=== PATIENT | female | born 1985 | race Caucasian/White ===

== ENCOUNTER 2017-12-24 09:41 | Emergency (ER) | payer OTHER ==
[2017-12-24 09:47] VITALS: BP 119/78; TEMP 99.4; BMI 23.4
--- NOTE | 2017-12-24 10:23 | ED.PDOC ---
General ED Provider: Dr. HAILE MONTEMAYOR Chief Complaint: Back Pain Stated Complaint: Low back pain Time Seen by Physician: 10:15 Mode of Arrival: Walk-In Information Source: Patient Exam Limitations: No limitations Nursing and Triage Documentation Reviewed and Agree: Yes Does patient meet sepsis criteria?: No System Inflammatory Response Syndrome: Not Applicable Sepsis Protocol: For patient's 13 years and over: Temp is 96.8 and below OR 101 and greater Pulse >90 BPM Resp >20/minute Acutely Altered Mental Status Are patient's symptoms suggestive of a new infection, such as: -Pneumonia -Skin, Soft Tissue -Endocarditis -UTI -Bone, Joint Infection -Implantable Device -Acute Abdominal Infection -Wound Infection -Meningitis -Blood Stream Catheter Infection -Unknown Musculoskeletal Complaint Exam - Back Pain Complaint/Exam Mechanism of Injury: Reports: No known trauma Onset/Duration: 1 week Symptoms Are: Still present Timing: Constant Initial Severity: Moderate Current Severity: Moderate Location: Reports: Discrete (midline - point tenderness) Character: Reports: Aching Aggravating: Reports: Movements, Lifting, Bending Alleviating: Reports: None Associated Signs and Symptoms: Reports: Pain with weight bearing. Denies: Swelling, Redness, Bruising, Fever, Weakness, Numbness, Tingling, Abdominal pain , Flank pain, Bladder incontinence, Bowel incontinence, Weight loss Related History: Reports: Similar episode (Off and on low back pain; no particular event setting this off this time) Paraspinal Muscle Tenderness: No Paraspinal Muscle Spasm: No Review of Systems - Review Of Systems Constitutional: Reports: No symptoms Eyes: Reports: No symptoms Ears, Nose, Mouth, Throat: Reports: No symptoms Respiratory: Reports: No symptoms Cardiac: Reports: No symptoms Musculoskeletal: Reports: Back pain. Denies: Joint pain, Joint swelling, Muscle pain, Muscle stiffness, Neck pain Skin: Reports: No symptoms All Other Systems: Reviewed and Negative Past Medical History - Past Medical History Previously Healthy: Yes Endocrine: Reports: None Cardiovascular: Reports: None Respiratory: Reports: None, Other Hematological: Reports: None Gastrointestinal: Reports: None Genitourinary: Reports: None Neuro/Psych: Reports: None Musculoskeletal: Reports: None Cancer: Reports: None Last Menstrual Period: 1 month ago - Surgical History General Surgical History: Reports: Hysterectomy - Family History Family History: Reports: Unknown - Social History Smoking Status: Current every day smoker, Heavy tobacco smoker Hx Substance Use: No Alcohol Screening: Occasionally Physical Exam - Physical Exam Appearance: Well-appearing Pain Distress: Mild (When seated in position of comfort on exam bed) Neck: Supple Respiratory: Airway patent, Breath sounds clear, Breath sounds equal Cardiovascular: RRR, Pulses normal Musculoskeletal: Normal strength, ROM intact, No edema Skin: Warm, Dry, Normal color Neurological: Sensation intact, Motor intact, Alert, Oriented Psychiatric: Affect appropriate, Mood appropriate Interpretation - Radiology Interpretation Radiology Interpretation By: Radiologist Radiology Results: No acute changes Exam Interpreted: Other (LS Series - no acute changes) Re-Evaluation - Re-Evaluation Time of Re-Evaluation: 11:15 Status: Unchanged Vital Signs Stable: Yes Pain Level: Mild when seated in position of comfort Appearance: NAD Critical Care Note - Critical Care Note Total Time (mins): 10 Course - Course Orders, Labs, Meds: Lab Review 12/24/17 09:55 Urine Color Yellow Urine Clarity Clear Urine pH 7.0 Ur Specific [place] 1.025 Urine Protein 1+ Urine Glucose (UA) Negative Urine Ketones Trace Urine Blood Negative Urine Nitrite Negative Urine Bilirubin Negative Urine Urobilinogen 0.2 Ur Leukocyte Esterase 1+ Urine Microscopic RBC 0-2 Urine Microscopic WBC 2-5 Ur Squamous Epith Cells 2-5 Amorphous Sediment 1+ Urine Bacteria 2+ Orders Category Date Time Status URINALYSIS C & S IF INDICATED Stat LAB 12/24/17 09:55 Completed URINE CULTURE Routine LAB 12/24/17 09:55 Received LUMBAR SPINE, MIN 4 VIEWS Stat RADS 12/24/17 10:26 Completed Vital Signs: Temp Pulse Resp BP Pulse Ox 12/24/17 09:41 99.4 F 91 H 16 119/78 96 Departure - Departure Time of Disposition: 11:21 Disposition: HOME SELF-CARE Discharge Problem: Urinary tract infection Low back pain Qualifiers: Chronicity: acute Back pain laterality: midline Sciatica presence: without sciatica Qualified Code(s): M54.5 - Low back pain Instructions: Low Back Strain (ED), Urinary Tract Infection in Women (ED) Condition: Stable Pt referred to PMD for follow-up: Yes (Follow up with a primary care provider) IPMP verified?: Yes (No CS prescriptions found on search) Additional Instructions: Tale medications as prescribed; follow up with a primary care provider if not better in one week. Prescriptions: Hydrocodone Bit/Acetaminophen [Rayle 5-325] 1 each PO Q6HR 3 Days #12 tablet Sulfamethoxazole/Trimethoprim [Bactrim Ds Tablet] 1 each PO BID 7 Days #14 tablet Allergies/Adverse Reactions: Allergies No Known Allergies Allergy (Verified 12/24/17 09:48) Home Medications: Ambulatory Orders Albuterol Sulfate [Proair Hfa] 2 puff INH PRN PRN 01/29/13 Hydrocodone Bit/Acetaminophen [Rayle 5-325] 1 each PO Q6HR 3 Days #12 tablet 11/03 Sulfamethoxazole/Trimethoprim [Bactrim Ds Tablet] 1 each PO BID 7 Days #14 tablet 12/24/17 Disposition Discussed With: Patient (Educated re radiology reading - normal LS series; probably not related to Dx of possible early)
--- NOTE | 2017-12-24 11:09 | DI ---
EXAM: Lumbar spine five views, including oblique views HISTORY: Lumbar back pain COMPARISON: None TECHNIQUE: Five views lumbar spine were performed including oblique views FINDINGS: Sacroiliac joints intact. Sacral arcuate intact. Minimal leftward curvature lumbar spine . Vertebral bodies normal height. No fracture. No subluxation. Intervertebral disc spaces maintai deonna. Facet joints grossly unremarkable. IMPRESSION: Minimal leftward curvature lumbar spine. Otherwise unremarkable examination.
== END 2017-12-24 11:50 | disposition home or self-care (01) ==
LOC: ED 09:41
DX: M54.5 Low back pain (principal); N39.0 Urinary tract infection, site not specified
CPT/HCPCS: 81001; 87086; 99282